=== PATIENT | male | born 1975 | race Caucasian/White ===

== ENCOUNTER 2022-04-08 11:30 | Emergency (ER) | payer OTHER ==
[~2022-04-08] VITALS: Ht 175.3 cm; Wt 81.7 kg
[~2022-04-08 11:30] MED LIST: Percocet 5-3251 EACH PO
== END 2022-04-08 11:58 | disposition home or self-care (01) ==
LOC: ER 11:30
DX: Z02.79 Encounter for issue of other medical certificate (principal); Z77.098 Contact with and (suspected) exposure to other hazardous, chiefly nonmedicinal, chemicals
CPT/HCPCS: 99282